=== PATIENT | male | born 1975 | race Caucasian/White ===

== ENCOUNTER 2016-11-29 11:27 | Emergency (ER) | payer SELFPAY ==
[~2016-11-29] VITALS: Ht 188 cm; Wt 99.8 kg
[~2016-11-29 11:27] MED LIST: GABA600T PO; GABA600T2 PO
[2016-11-29 11:40] VITALS: BP 133/82
[2016-11-29] MEDS ORDERED: TRAM-29 PO (13:00)
[2016-11-29] MEDS ORDERED: CEPH-264 PO (13:00)
[2016-11-29] MEDS ORDERED: GABA600T2 PO (13:00)
--- NOTE | 2016-11-29 13:00 | PHYS DOC ---
Past Medical History Past Medical History: No Pertinent History, Other Additional Past Medical Histor: LLE amputation Past Surgical History: Tonsillectomy, Other Additional Past Surgical Histo: BKA 2007 Smoking: Less than 1pk/day Alcohol Use: Rarely Drug Use: None Adult General Chief Complaint Chief Complaint: LOWER EXT PAIN HPI HPI Patient is a 41 year old male who presents with pain in the left lower extremity at the site of his BKA. The patient describes the pain as a nerve pain with sharp, shooting nature. He denies any new injury. He typically takes gabapentin for his nerve pain but is out of this medication currently. He has been taking Tylenol and ibuprofen for pain without relief. He has an appointment with a new PCP on 12/03/16 at [facility]. Review of Systems Review of Systems Constitutional: Denies fever or chills. [] Musculoskeletal: Denies back pain or joint pain. Reports left lower leg pain at amputation site. Integument: Denies rash or skin lesions. [] Neurologic: Denies focal weakness or sensory changes. [] Allergies Allergies Allergies Coded Allergies Type Severity Reaction Last Updated Verified No Known Drug Allergies 05/03/15 No Physical Exam Physical Exam Constitutional: Well developed, well nourished, no acute distress, non-toxic appearance. [] HENT: Normocephalic, atraumatic, oropharynx moist. [] Eyes: PERRLA, EOMI, conjunctiva normal, no discharge. [] Neck: Normal range of motion, no tenderness, supple, no stridor. [] Skin: Warm, dry, no rash. There is first-degree skin breakdown of the distal end of the left leg stump without ulceration, induration, or drainage. Extremities: Left leg stump tenderness, ROM intact, no edema. [] Neurologic: Alert and oriented X 3, normal motor function, normal sensory function, no focal deficits noted. [] Psychologic: Affect normal, judgement normal, mood normal. [] Current Patient Data Vital Signs Vital Signs Date Time Temp Pulse Resp B/P Pulse Ox O2 Delivery O2 Flow Rate FiO2 11/29/16 11:40 97.8 74 16 97 Room Air 97.8 EKG EKG [] Radiology/Procedures Radiology/Procedures [] Course & Med Decision Making Course & Med Decision Making Pertinent Labs and Imaging studies reviewed. (See chart for details) [] Dragon Disclaimer Dragon Disclaimer This electronic medical record was generated, in whole or in part, using a voice recognition dictation system. Departure Departure Impression: Primary Impression: Pain of amputation stump of left lower extremity Disposition: HOME, SELF-CARE Condition: STABLE Referrals: NO PCP (PCP) Patient Instructions: Stump Care, Prosthesis Scripts Gabapentin 600 Mg [id number] Mg PO TID #30 TAB Prov:BEST KEENAN 11/29/16 Cephalexin (Keflex)500 Mg Capsule1 Cap PO BID #14 CAP Prov:BEST KEENAN 11/29/16 Tramadol Hcl (Ultram)50 Mg [id number] Mg PO Q6H PRN PAIN #20 TAB Prov:BEST KEENAN 11/29/16 BEST KEENAN Nov 29, 2016 13:00
== END 2016-11-29 13:08 | disposition home or self-care (01) ==
LOC: ER 11:27
DX: T87.89 Other complications of amputation stump (principal); F17.200 Nicotine dependence, unspecified, uncomplicated; Z89.512 Acquired absence of left leg below knee; Z89.511 Acquired absence of right leg below knee; Y83.8 Other surgical procedures as the cause of abnormal reaction of the patient, or of later complication, without mention of misadventure at the time of the procedure; Y92.89 Other specified places as the place of occurrence of the external cause
CPT/HCPCS: 99283

== ENCOUNTER 2017-03-12 10:19 | Emergency (ER) | payer SELFPAY ==
[~2017-03-12] VITALS: Ht 188 cm; Wt 98.0 kg
[~2017-03-12 10:19] MED LIST changes: +CEPH-264 PO; +TRAM-29 PO
[2017-03-12 10:28] VITALS: BP 146/82
[2017-03-12] MEDS ORDERED: TRAM-29 PO (10:40)
--- NOTE | 2017-03-12 10:40 | PHYS DOC ---
Past Medical History Past Medical History: No Pertinent History, Other Additional Past Medical Histor: LLE amputation Past Surgical History: Tonsillectomy, Other Additional Past Surgical Histo: BKA 2007 Alcohol Use: Rarely Drug Use: None Adult General Chief Complaint Chief Complaint: LOWER EXT PAIN HPI HPI Patient is a 42 year old male with history of left below the knee amputation who presents today with pain and discomfort around his stump. Patient states he got a new prosthesis recently and it's uncomfortable. He states follows up with an [employer] that makes the prosthesis and they will adjust it next week. In the meantime is requesting something for pain specifically Ultram . Denies any trauma Review of Systems Review of Systems Constitutional: Denies fever or chills [] Eyes: Denies change in visual acuity, redness, or eye pain [] HENT: Denies nasal congestion or sore throat [] Musculoskeletal:Left lower extremity pain Integument: Denies rash or skin lesions [] Neurologic: Denies headache, focal weakness or sensory changes [] Endocrine: Denies polyuria or polydipsia [] Allergies Allergies Allergies Coded Allergies Type Severity Reaction Last Updated Verified No Known Drug Allergies 05/03/15 No Physical Exam Physical Exam Constitutional: Well developed, well nourished, no acute distress, non-toxic appearance. [] HENT: Normocephalic, atraumatic, bilateral external ears normal, oropharynx moist, no oral exudates, nose normal. [] Skin: Warm, dry, no erythema, no rash. [] Back: No tenderness, no CVA tenderness. [] Extremities: Left lower extremity with a BKA. There is slight redness noted along the stump, no signs of infection. Neurovascular exam is intact on the left lower extremity. Neurologic: Alert and oriented X 3, normal motor function, normal sensory function, no focal deficits noted. [] Psychologic: Affect normal, judgement normal, mood normal. [] EKG EKG [] Radiology/Procedures Radiology/Procedures [] Course & Med Decision Making Course & Med Decision Making Pertinent Labs and Imaging studies reviewed. (See chart for details) Patient is in the ED with complaints of left lower extremity pain along his stump site due to new prosthesis. He has an old left BKA. He follows light [employer]. We gave him a prescription for Ultram and he can follow up with his doctor. Pedrito Disclaimer Pedrito Disclaimer This electronic medical record was generated, in whole or in part, using a voice recognition dictation system. Departure Departure Impression: Primary Impression: Pain of amputation stump of left lower extremity Disposition: HOME, SELF-CARE Condition: STABLE Referrals: NO PCP (PCP) Follow-up with your own doctor in one week. Patient Instructions: Musculoskeletal Pain Additional Instructions: Please follow-up with the company that makes the prosthesis next week and have them adjust it Scripts Tramadol Hcl (ULTRAM) 50 Mg Tablet 1 TAB PO Q6HRS, #30 TAB Prov: GUDELIA BLAND APRN 03/12/17 GUDELIA BLAND APRN March 12, 2017 10:40
== END 2017-03-12 10:55 | disposition home or self-care (01) ==
LOC: ER 10:19
DX: T84.84XA Pain due to internal orthopedic prosthetic devices, implants and grafts, initial encounter (principal); Z89.512 Acquired absence of left leg below knee; Y83.5 Amputation of limb(s) as the cause of abnormal reaction of the patient, or of later complication, without mention of misadventure at the time of the procedure; Y92.89 Other specified places as the place of occurrence of the external cause
CPT/HCPCS: 99283

== ENCOUNTER 2017-05-27 16:23 | Emergency (ER) | payer SELFPAY ==
[~2017-05-27] VITALS: Ht 188 cm; Wt 95.3 kg
[~2017-05-27 16:23] MED LIST changes: -TRAM-29 PO; +TRAM-48 PO
[2017-05-27 17:00] VITALS: BP 137/83
[2017-05-27] MEDS ORDERED: SULF1TAB24 PO (17:32)
--- NOTE | 2017-05-27 17:32 | PHYS DOC ---
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 Patient states that he had a left below the knee amputation back in 2007. He does wear a prosthesis on the leg. He states he has an abscess on the back of the leg that he has had there for approximately 2 months. He states the area had been having yellow drainage coming from the site analysis bloody. He does feel a nodule in the area. He denies any fever, chills or any nausea vomiting. He also states he has a skin tear on the anterior part of the area of the lower stump. He states that whenever he has not acted he has increased pain and discomfort with this area that has the skin tear. He denies any drainage or discharge coming from the site. He denies any discomfort with his prosthesis. [] Review of Systems Review of Systems Constitutional: Denies fever or chills [] Eyes: Denies change in visual acuity, redness, or eye pain [] HENT: Denies nasal congestion or sore throat [] Respiratory: Denies cough or shortness of breath [] Cardiovascular: No additional information not addressed in HPI [] GI: Denies abdominal pain, nausea, vomiting, bloody stools or diarrhea [] : Denies dysuria or hematuria [] Musculoskeletal: Denies back pain or joint pain [] Integument: Denies rash or skin lesions. Complaint of abscess to the left posterior stump area, skin tear to the anterior stump area Neurologic: Denies headache, focal weakness or sensory changes [] Endocrine: Denies polyuria or polydipsia [] Allergies Allergies Allergies Coded Allergies Type Severity Reaction Last Updated Verified No Known Drug Allergies 05/03/15 No Physical Exam Physical Exam Constitutional: Well developed, well nourished, no acute distress, non-toxic appearance. [] HENT: Normocephalic, atraumatic, bilateral external ears normal, oropharynx moist, no oral exudates, nose normal. [] Eyes: PERRLA, EOMI, conjunctiva normal, no discharge. [] Neck: Normal range of motion, no tenderness, supple, no stridor. [] Cardiovascular:Heart rate regular rhythm, no murmur [] Lungs & Thorax: Bilateral breath sounds clear to auscultation [] Skin: Warm, dry, no erythema, no rash. Patient with an area that appears to be the size of a nickel that is encapsulated with fluctuation noted no drainage or discharge coming from the site. Patient is able to squeeze the area with bloody drainage noted. Patient on the anterior part of the stump area has a skin tear noted in which has slight bloody discharge noted. No redness noted surround either sites. Back: No tenderness Extremities: No tenderness, no cyanosis, no clubbing, ROM intact, no edema. [] Neurologic: Alert and oriented X 3, normal motor function, normal sensory function, no focal deficits noted. [] Psychologic: Affect normal, judgement normal, mood normal. [] Current Patient Data Vital Signs Vital Signs Date Time Temp Pulse Resp B/P (MAP) Pulse Ox O2 Delivery O2 Flow Rate FiO2 05/27/17 17:00 98.0 81 16 137/83 (101) 97 Room Air 98.0 EKG EKG [] Radiology/Procedures Radiology/Procedures [] Course & Med Decision Making Course & Med Decision Making Pertinent Labs and Imaging studies reviewed. (See chart for details) Patient was instructed to keep the areas clean and dry and clean with soap and water and apply antibiotic ointment. Patient will be placed on Bactrim. Also recommended the patient to make sure that his prosthesis is fitting correctly and not rubbing. Also recommended for the abscess on the back of the leg to follow-up with a surgeon in have the area that is abscessed removed. Patient agrees with discharge instructions treatment regimens and follow-up recommendations. Recommended Tylenol or ibuprofen for pain and discomfort. Patient is requesting something stronger here in the emergency department. He will be provided with hydrocodone. Signs and symptoms to return back to emergency department as been provided. [] Dragon Disclaimer Dragon Disclaimer This electronic medical record was generated, in whole or in part, using a voice recognition dictation system. Departure Departure Impression: Primary Impression: Abscess Additional Impression: Skin tear Disposition: 01 HOME, SELF-CARE Condition: STABLE Referrals: UNKNOWN PCP NAME (PCP) Patient Instructions: Abscess, [id number], Skin Tear Care, [id number] Additional Instructions: Keep the area clean and dry. Clean the sites with soap and water and apply antibiotic ointment to the areas. Make sure you cover the anterior part of the skin tear with some moleskin or protective agent to prevent rubbing. Follow-up with the surgeon to have the abscess removed. Medication as prescribed. Tylenol or ibuprofen for pain and discomfort. Follow-up as mentioned with either his surgeon or primary care physician in the next week. Return back to emergency department for signs and symptoms of become worse. Scripts Sulfamethoxazole/Trimethoprim (BACTRIM DS TABLET) 1 Each Tablet 1 TAB PO BID, #20 TAB Prov: SONIA BALES APRN 05/27/17 Problem Qualifiers SONIA BALES APRN May 27, 2017 17:32
[2017-05-27] MEDS ORDERED: HYDROcodone/APAP 5/325MG 1 TAB TABLET PO ONE (17:45)
== END 2017-05-27 17:55 | disposition home or self-care (01) ==
LOC: ER 16:23
DX: S81.812A Laceration without foreign body, left lower leg, initial encounter (principal); Z90.89 Acquired absence of other organs; L02.416 Cutaneous abscess of left lower limb; X58.XXXA Exposure to other specified factors, initial encounter; Y93.89 Activity, other specified; Y99.8 Other external cause status; Y92.89 Other specified places as the place of occurrence of the external cause
CPT/HCPCS: 99283

== ENCOUNTER 2020-10-30 11:18 | Emergency (ER) | payer SELFPAY ==
[~2020-10-30] VITALS: Ht 188 cm; Wt 84.0 kg
[~2020-10-30 11:18] MED LIST changes: -GABA600T2 PO; +GABA600T7 PO; +SULF1TAB24 PO
[2020-10-30 11:55] VITALS: BP 157/91
--- NOTE | 2020-10-30 12:45 | PHYS DOC ---
Past Medical History Past Medical History: Other Additional Past Medical Histor: LLE amputation Past Surgical History: Tonsillectomy, Other Additional Past Surgical Histo: BKA 2008, RT ELBOW, NECK SURGERY, TENDON REPAIR RT PINKY Smoking Status: Current Every Day Smoker Additional Information: 0.75/ppd Alcohol Use: None Drug Use: None General Adult EDM: Chief Complaint: LOWER EXT PAIN HPI: HPI: 45 yo M past medical history of tobacco dependence and below the knee amputation in 2007 (surgery in [place]), presents to the ED with complaints of pain to his distal stump for the past 2 weeks reporting he has been out of his insurance and unable to refill his gabapentin and tramadol. Reports he cannot afford the co- pay to see his primary care physician Dr. Hancock in [place] who is refusing to refill these medications. Also reports his prosthesis padding has been broken down for the past 2 weeks. Is requesting prescriptions for tramadol and gabapentin. Pt denies any new trauma to the knee or distal stump. No associated fever, chills, rash, swelling, decreased range of motion, sensory or motor deficits or drainage. 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 Review of Systems: Review of Systems: Constitutional: Denies fever or chills. [] Eyes: Denies change in visual acuity. [] HENT: Denies nasal congestion or sore throat. [] Respiratory: Denies cough or shortness of breath. [] Cardiovascular: Denies chest pain or edema. [] GI: Denies abdominal pain, nausea, vomiting, bloody stools or diarrhea. [] : Denies dysuria or hematuria Musculoskeletal: Denies back pain or joint swelling Integument: Denies rash, crepitus or diaphoresis Neurologic: Denies headache, focal weakness or sensory changes. [] Endocrine: Denies polyuria or polydipsia. [] Lymphatic: Denies swollen glands. [] Psychiatric: Denies depression or anxiety. [] Heart Score: Risk Factors: Risk Factors: DM, Current or recent (<one month) smoker, HTN, HLP, family history of CAD, obesity. Risk Scores: Score 0 - 3: 2.5% MACE over next 6 weeks - Discharge Home Score 4 - 6: 20.3% MACE over next 6 weeks - Admit for Clinical Observation Score 7 - 10: 72.7% MACE over next 6 weeks - Early Invasive Strategies Allergies: Allergies: Allergies Coded Allergies Type Severity Reaction Last Updated Verified No Known Drug Allergies 05/03/15 No Physical Exam: PE: Constitutional: Well developed, well nourished, no acute distress, non-toxic appearance. HENT: Normocephalic, atraumatic, Eyes: EOMI, conjunctiva normal, no discharge. Neck: Normal range of motion, supple, Cardiovascular: S1/2 present, regular rhythm Lungs & Thorax: Speaking in full sentences, bilateral equal chest rise, no tachypnea or increased work of breathing Abdomen: soft, no tenderness, Skin: Warm, dry, no erythema, no rash. [] Back: No tenderness, no CVA tenderness. [] Extremities: No no cyanosis, BKA lle - no erythema/rash/crepitus/induration or fluctuance, Skin flap c/d/i w/no wound dehiscence of drainage, no knee effusion w/from, prostestic leg padding is breaking down over popliteal crease - pt was seen putting this on and leaving ed w/no distress Neurologic: Alert and oriented X 3, normal motor function, normal sensory function, no focal deficits noted. [] Psychologic: Affect normal, judgement normal, mood normal. [] Current Patient Data: Vital Signs: Vital Signs Date Time Temp Pulse Resp B/P (MAP) Pulse Ox O2 Delivery O2 Flow Rate FiO2 10/30/20 11:55 98.7 87 20 157/91 (113) 99 Room Air 98.7 EKG: EKG: [] Radiology/Procedures: Radiology/Procedures: [] Course & Med Decision Making: Course & Med Decision Making Pertinent Labs and Imaging studies reviewed. (See chart for details) Patient presents to the ED with complaints of chronic, atraumatic, left lower extremity knee pain with no signs of rash, septic joint or life or limb threatening disease. Patient is requesting a medication refill for gabapentin and tramadol. Pt with no signs/sxs of withdrawal. I informed pt that tramadol would need to be refilled by his pmd or a roof cement and paint maker. I offered Tylenol or ibuprofen. I recommended repeat xray imaging and that I would refer pt to pmd, pain management and local prosthetic centers for appropriate padding/referrals. I offered apap or motrin rx and gabapentin rx. Patient with [facility]. Pt became very upset, over not getting tramadol. Pt refused any further medical care, referrals or discharge paperwork. Pt choose to elope from ed - traumatic injury was not ruled out although hx/pe not consistent with this. Pt was scene by myself ambulating out of ed with prosthesis on, no antalgic gait, in no distress. Suspect malingering for narcotic medication/drug seeking behavior. 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 Initially requested tramadol and is now on gabapentin 900 mg. Life/limb-threatening differential includes but is not limited to, trauma (fracture, dislocation, laceration, compartment syndrome, tendon or ligament injury), neurovascular injury or deficit, infection (osteomyelitis, abscess, cellulitis, septic arthritis, necrotizing fasciitis), deep vein thrombosis, renal/cardiac/liver disease, medication adverse effect, lymphedema/anasarca, vascular insufficiency or malignancy, erythema multiforme, serrano-josefa syndrome, toxic epidermal necrolysis, staphylococcal scalded skin syndrome, necrotizing fasciitis/myositis/cellulitis, purpura fulminans, disseminated intravascular coagulation, vasculitis, septicemia, petechial disorder or coagulopathy, Dragon Disclaimer: Dragon Disclaimer: This electronic medical record was generated, in whole or in part, using a voice recognition dictation system. Departure Departure Impression: Primary Impression: Chronic pain of left knee Additional Impression: Drug-seeking behavior Disposition: 07 AMA/ELOPED/LWBS Condition: STABLE Referrals: UNKNOWN PCP NAME (PCP) FOLLOW UP WITH FAMILY MEDICINE: Family Medicine Address: [address] [facility] [address] [place] [address] Patient Instructions: Medication Refill, Emergency Department, Stump Care, Prosthesis Additional Instructions: [facility] prosthetic [facility] [address] [place] [address] FOLLOW UP WITH PAIN MANAGEMENT: [facility] Address: [address] [place] [address] EMERGENCY DEPARTMENT GENERAL DISCHARGE INSTRUCTIONS Thank you for coming to [facility] Emergency Department (ED) today and trusting us with you care. We trust that you had a positive experience in our Emergency Department. If you wish to speak to the department management, you may call the Director at [phone]. YOUR FOLLOW UP INSTRUCTIONS ARE FOLLOWS: 1. Do you have a private Doctor? If you do not have a private doctor, please ask for a resource list of physicians or clinics that may be able to assist you with follow up care. 2. The Emergency Physicain has interpreted your x-rays. The X-Ray specialist will also review them. If there is a change in the findings, you will be notified in 48 hours when at all possible. 3. A lab test or culture has been done, your results will be reviewed and you w ill be notified if you need a change in treatment. ADDITIONAL INSTRUCTIONS AND INFORMATION: 1. Your care today has been supervised by a physician who is specially trained in emergency care. Many problems require more than one evaluation for a complete diagnosis and treatment. We recommend that you schedule your follow up appointment as recommended to ensure complete treatment of you illness or injury. If you are unable to obtain follow up care and continue to have a problem, or if your condition worsens, we recommend that you return to the ED. 2. We are not able to safely determine your condition over the phone nor are we able to give sound medical advice over the phone. For these safety reasons, if you call for medical advice we will ask you to come to the ED for further evaluation. 3. If you have any questions regarding these discharge instructions please call the ED at [phone]. SAFETY INFORMATION: In the interest of safety, wellness, and injury prevention; we encourage you to wear your sealbelt, if you smoke; quite smoking, and we encourage family to use a protective helmet for bicycling and other sporting events that present an increased risk for head injury. IF YOUR SYMPTOMS WORSEN OR NEW SYMPTOMS DEVELOP, OR YOU HAVE CONCERNS ABOUT YOUR CONDITION; OR IF YOUR CONDITION WORSENS WHILE YOU ARE WAITING FOR YOUR FOLLOW UP APPOINTMENT; EITHER CONTACT YOUR PRIMARY CARE DOCTOR, THE PHYSICIAN WHOSE NAME AND NUMBER YOU WERE GIVEN, OR RETURN TO THE ED IMMEDIATELY. RENZO CURIEL DO Oct 30, 2020 12:45
== END 2020-10-30 12:28 | disposition left against medical advice (07) ==
LOC: ER 11:18
DX: G89.29 Other chronic pain (principal); M25.562 Pain in left knee; F17.200 Nicotine dependence, unspecified, uncomplicated; Z76.5 Malingerer [conscious simulation]; Z90.89 Acquired absence of other organs; Z98.890 Other specified postprocedural states
CPT/HCPCS: 99282

== ENCOUNTER 2022-03-16 03:25 | Emergency (ER) | payer SELFPAY ==
[~2022-03-16] VITALS: Ht 188 cm; Wt 86.4 kg
[2022-03-16] MEDS ORDERED: NITROGLYCERIN SUBLINGUAL 0.4 MG BOTTLE OF 25. SL PRN (03:45)
[2022-03-16] MEDS ORDERED: IV NORMAL SALINE 1000ML BAG 1,000 ML IV SCH (03:45)
--- NOTE | 2022-03-16 03:46 | ED.ADGEN ---
Past Medical History Past Medical History: Other Additional Past Medical Histor: DRUG ABUSE Past Surgical History: Other Additional Past Surgical Histo: LEFT LEG AMPUTATION Smoking Status: Current Every Day Smoker Alcohol Use: Heavy Additional Information: NONE X 2 DAYS Drug Use: None Social History Narrative: NONE X 2 DAYS General Adult EDM: Chief Complaint: CHEST PAIN HPI: HPI: Patient is a 47 year old male brought in by EMS for left-sided chest pain. Patient states he was walking in pain started and thinks to increase stress. Patient has a history of methamphetamine use and has not slept much in the past 2.5 days. History is difficult to contain because patient explaining history is disorganized, redirectable. Patient is having paranoid thoughts that somebody is out to get him. Denies any falls or heavy lifting. Patient denies any personal history of chest pain. Pain is reproducible with palpation and deep breath, describes as sharp. Patient uses methamphetamines and smokes half pack of cigarettes per day. Denies any immediate family history of cardiac disease Review of Systems: Review of Systems: All other systems within normal limits except for as noted in the HPI Current Medications: Current Medications Medications (Trade) Dose Ordered Sig/Ashley Start Time Stop Time Status Last Admin Dose Admin Enoxaparin Sodium (Lovenox 80mg Syringe) 80 mg 1X ONCE 03/16/22 09:30 03/16/22 09:23 DC Lorazepam (Ativan Inj) 1 mg 1X ONCE 03/16/22 03:45 03/16/22 03:46 DC 03/16/22 04:08 1 MG Metoprolol Tartrate (Lopressor Vial) 5 mg 1X ONCE 03/16/22 09:30 03/16/22 09:23 DC Nitroglycerin (Nitrostat) 0.4 mg PRN Q5MIN PRN 03/16/22 03:45 03/17/22 03:44 Sodium Chloride 1,000 ml @ 1,000 mls/hr Q1H 03/16/22 03:45 03/16/22 04:44 DC 03/16/22 04:07 1,000 MLS/HR Allergies: Allergies: Allergies Coded Allergies Type Severity Reaction Last Updated Verified No Known Drug Allergies 05/03/15 No Physical Exam: PE: Constitutional: Well developed, well nourished, no acute distress, non-toxic appearance. [] HENT: Normocephalic, atraumatic, bilateral external ears normal, nose normal. [] Eyes: PERRLA, conjunctiva normal, no discharge. [] Neck: No rigidity, supple, no stridor. [] Cardiovascular: Regular rate and rhythm, brisk cap refill [] Lungs & Thorax: Non labored symmetric respirations, no tachypnea or respiratory distress [] Abdomen: Soft, nondistended. Skin: Warm, dry, no erythema, no rash. [] Back: Unremarkable Extremities: No deformities, range of motion grossly intact, no lower extremity edema [] Neurologic: Alert and oriented X 3, no focal deficits noted. [] Psychologic: Paranoid thoughts, disorganized thinking Current Patient Data: Labs: Laboratory Tests Test 03/16/22 03:36 03/16/22 06:30 White Blood Count 7.3 x10^3/uL (4.0-11.0) Red Blood Count 4.64 x10^6/uL (4.30-5.70) Hemoglobin 14.4 g/dL (13.0-17.5) Hematocrit 40.8 % (39.0-53.0) Mean Corpuscular Volume 88 fL (79-100) Mean Corpuscular Hemoglobin 31 pg (25-35) Mean Corpuscular Hemoglobin Concent 35 g/dL (31-37) Red Cell Distribution Width 12.7 % (11.5-14.5) Platelet Count 288 x10^3/uL (140-400) Neutrophils (%) (Auto) 62 % (31-73) Lymphocytes (%) (Auto) 24 % (24-48) Monocytes (%) (Auto) 11 % (0-9) H Eosinophils (%) (Auto) 3 % (0-3) Basophils (%) (Auto) 1 % (0-3) Neutrophils # (Auto) 4.5 x10^3/uL (1.8-7.7) Lymphocytes # (Auto) 1.7 x10^3/uL (1.0-4.8) Monocytes # (Auto) 0.8 x10^3/uL (0.0-1.1) Eosinophils # (Auto) 0.2 x10^3/uL (0.0-0.7) Basophils # (Auto) 0.1 x10^3/uL (0.0-0.2) Sodium Level 139 mmol/L (136-145) Potassium Level 4.2 mmol/L (3.5-5.1) Chloride Level 102 mmol/L (98-107) Carbon Dioxide Level 23 mmol/L (21-32) Anion Gap 14 (6-14) Blood Urea Nitrogen 15 mg/dL (8-26) Creatinine 0.8 mg/dL (0.7-1.3) Estimated GFR (Cockcroft-Gault) 104.5 BUN/Creatinine Ratio 19 (6-20) Glucose Level 83 mg/dL (70-99) Calcium Level 8.8 mg/dL (8.5-10.1) Magnesium Level 2.0 mg/dL (1.8-2.4) Total Bilirubin 0.9 mg/dL (0.2-1.0) Aspartate Amino Transferase (AST) 29 U/L (15-37) Alanine Aminotransferase (ALT) 20 U/L (16-63) Alkaline Phosphatase 101 U/L (46-116) Troponin I High Sensitivity 6 ng/L (4-75) 5 ng/L (4-75) SA-Uly-E-Type Natriuretic Peptide 17 pg/mL (0-124) Total Protein 7.1 g/dL (6.4-8.2) Albumin 3.8 g/dL (3.4-5.0) Albumin/Globulin Ratio 1.2 (1.0-1.7) Laboratory Tests 03/16/22 03:36 Laboratory Tests 03/16/22 03:36 Vital Signs: Vital Signs Date Time Temp Pulse Resp B/P (MAP) Pulse Ox O2 Delivery O2 Flow Rate FiO2 03/16/22 06:27 68 106/56 (73) 98 Room Air 03/16/22 03:28 98.4 24 98.4 EKG: EKG: Sinus rhythm, heart rate 92 bpm, no STEMI [] Heart Score: C/O Chest Pain: Yes HEART Score for Chest Pain: HEART Score for Chest Pain Response (Comments) Value History Slighlty/Non-Suspicious 0 ECG Normal 0 Age < 45 0 Risk Factors 1 or 2 Risk Factors 1 Troponin < Normal Limit 0 Total 1 Risk Factors: Risk Factors: DM, Current or recent (<one month) smoker, HTN, HLP, family history of CAD, obesity. Risk Scores: Score 0 - 3: 2.5% MACE over next 6 weeks - Discharge Home Score 4 - 6: 20.3% MACE over next 6 weeks - Admit for Clinical Observation Score 7 - 10: 72.7% MACE over next 6 weeks - Early Invasive Strategies Radiology/Procedures: Radiology/Procedures: [] Impression: Atypical chest pain Course & Med Decision Making: Course & Med Decision Making Pertinent Labs and Imaging studies reviewed. (See chart for details) [] Patient pending repeat Trope at shift change. Care transitioned to Dr. Dumont Troponin x2 within normal limits. Labs and EKG within normal limits, imaging within normal limits. Discussed findings reviewed with patient. Patient states he does not have any more chest pain. Patient states he would just like to sleep. I reviewed options with patient, patient will follow up with primary care physician in 1 week. Patient is doing well at this moment. Patient was discharged in hemodynamically stable condition. All questions answered, ER pre cautions given. Pedrito Disclaimer: Pedrito Disclaimer: This electronic medical record was generated, in whole or in part, using a voice recognition dictation system. Departure Departure Impression: Primary Impression: Chest pain Referrals: UNKNOWN PCP NAME (PCP) MICAH CUETO MD March 16, 2022 03:46 KEYSHAWN DUMONT MD March 16, 2022 09:26
[2022-03-16 03:47] LABS: BASO # 0.1 x10^3/uL (0.0-0.2); BASO % 1 % (0-3); EOS # 0.2 x10^3/uL (0.0-0.7); EOS % 3 % (0-3); HEMATOCRIT 40.8 % (39.0-53.0); HEMOGLOBIN 14.4 g/dL (13.0-17.5); LYMPH # 1.7 x10^3/uL (1.0-4.8); LYMPH % 24 % (24-48); MEAN CORPUSCULAR HEMOGLOBIN 31 pg (25-35); MEAN CORPUSCULAR HGB CONC 35 g/dL (31-37); MEAN CORPUSCULAR VOLUME 88 fL (79-100); MONO # 0.8 x10^3/uL (0.0-1.1); MONO % 11 % (0-9); NEUT # 4.5 x10^3/uL (1.8-7.7); NEUT % 62 % (31-73); PLATELET COUNT 288 x10^3/uL (140-400); RED BLOOD COUNT 4.64 x10^6/uL (4.30-5.70); RED CELL DISTRIBUTION WIDTH 12.7 % (11.5-14.5); WHITE BLOOD COUNT 7.3 x10^3/uL (4.0-11.0)
[2022-03-16 04:01] LABS: CALCIUM 8.8 mg/dL (8.5-10.1); CREATININE 0.8 mg/dL (0.7-1.3); GFR 104.5; POTASSIUM 4.2 mmol/L (3.5-5.1)
[2022-03-16 04:07] LABS: ALBUMIN 3.8 g/dL (3.4-5.0); ALBUMIN/GLOBULIN RATIO 1.2 (1.0-1.7); TOTAL BILIRUBIN 0.9 mg/dL (0.2-1.0); TOTAL PROTEIN 7.1 g/dL (6.4-8.2)
--- NOTE | 2022-03-16 05:32 | RAD ---
XR CHEST 1V Clinical Indication: Reason: chest pain, left Comparison: None. Findings: The cardiomediastinal silhouette is normal. Lungs are clear. There is no pneumothorax. No pleural eff usion is appreciated. No acute bone abnormality. There is anterior and posterior fusion hardware of t he lower cervical spine, incompletely imaged. IMPRESSION: No acute cardiopulmonary process. Electronically signed by: Oren Guevara MD (03/16/2022 5:29 AM) [facility]
--- NOTE | 2022-03-16 05:48 | EKG ---
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
--- NOTE | 2022-03-16 06:20 | EKG ---
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
[2022-03-16] MEDS ORDERED: METOPROLOL IV PUSH 5 MG/5 ML VIAL. IVP ONE (09:30)
--- NOTE | 2022-03-16 11:17 | EKG ---
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
[2022-03-16 11:49] VITALS: BP 105/62
== END 2022-03-16 13:40 | disposition home or self-care (01) ==
LOC: ER 03:25
DX: R07.89 Other chest pain (principal); F17.200 Nicotine dependence, unspecified, uncomplicated
CPT/HCPCS: 36415; 71045; 80053; 83735; 83880; 84484; 85025; 93005; 96361; 96374; 99285; J2060; J7030